=== PATIENT | male | born 1955 | race Caucasian/White ===

== ENCOUNTER 2017-06-30 22:12 | Emergency (ER) | payer MEDICARE ==
[~2017-06-30] VITALS: Ht 175.3 cm; Wt 70.0 kg
[2017-06-30 23:22] LABS: HEMATOCRIT 36.7 % (39.2-51.8); HEMOGLOBIN 12.1 g/dL (13.7-18.0); WHITE BLOOD COUNT 14.3 x10^3/uL (3.4-10)
[2017-06-30 23:34] LABS: BLOOD UREA NITROGEN 4 mg/dL (7-18)
[2017-07-01] MEDS ORDERED: SODIUM CHLORIDE 0.9% 1,000ML IVBOLUS ONE
[2017-07-01 00:44] LABS: PATH.CAST-FLAG NOT PRESENT; SPERM-FLAG NOT PRESENT; SRC-FLAG NOT PRESENT; XTAL-FLAG NOT PRESENT; YLC-FLAG NOT PRESENT
[2017-07-01 04:13] VITALS: BP 94/52
== END 2017-07-01 04:24 | disposition home or self-care (01) ==
LOC: ED 23:36
DX: F10.220 Alcohol dependence with intoxication, uncomplicated (principal)
CPT/HCPCS: 36415; 71010; 80048; 80307; 81001; 82040; 85025; 96360; 99285; J7030; G0479

== ENCOUNTER 2017-07-09 17:24 | Emergency (ER) | payer MEDICARE ==
[~2017-07-09] VITALS: Ht 172.7 cm; Wt 65.0 kg
[2017-07-09 17:38] VITALS: BP 148/76
== END 2017-07-09 18:19 | disposition home or self-care (01) ==
LOC: ED 18:13
DX: Z02.89 Encounter for other administrative examinations (principal); G89.29 Other chronic pain; Z99.3 Dependence on wheelchair; M79.605 Pain in left leg
CPT/HCPCS: 99283

== ENCOUNTER 2017-07-19 02:38 | Emergency (ER) | payer MEDICARE ==
[~2017-07-19] VITALS: Ht 172.7 cm; Wt 68.0 kg
[2017-07-19 03:36] LABS: BASOPHILS # (AUTO) 0.12 x10^3/uL (0-0.1); BASOPHILS % (AUTO) 2 % (0-1); EOSINOPHILS # (AUTO) 0.98 x10^3/uL (0-0.4); EOSINOPHILS % (AUTO) 13 % (1-7); LYMPHOCYTES % (AUTO) 39 % (22-44); MD NO; MEAN CORPUSCULAR HEMOGLOBIN 28.7 pg (27.5-34.5); MEAN CORPUSCULAR HGB CONC 32.2 g/dL (33.2-36.2); MEAN CORPUSCULAR VOLUME 88.9 fL (81-97); MEAN PLATELET VOLUME 7.5 fL (7.4-10.4); MONOCYTES # (AUTO) 0.74 x10^3/uL (0.2-0.8); MONOCYTES % (AUTO) 10 % (2-9); NEUTROPHILS # (AUTO) 2.68 x10^3/uL (1.8-6.8); NEUTROPHILS % (AUTO) 36 % (42-75); PLATELET COUNT 484 x10^3/uL (130-400); RED BLOOD COUNT 4.61 x10^6/uL (4.38-5.82); RED CELL DISTRIBUTION WIDTH 20.5 % (9.4-14.8)
[2017-07-19 03:46] LABS: ALBUMIN 2.9 g/dL (3.4-5.0); ANION GAP 9 mmol/L (5-15); CALCIUM 8.8 mg/dL (8.5-10.1); CHLORIDE 108 mmol/L (98-107); CREATININE 0.53 mg/dL (0.7-1.3)
[2017-07-19 10:17] VITALS: BP 99/67
== END 2017-07-19 11:31 | disposition home or self-care (01) ==
LOC: ED 08:42
DX: F10.129 Alcohol abuse with intoxication, unspecified (principal)
CPT/HCPCS: 36415; 70450; 80048; 80307; 82040; 85025; 99285; G0479

== ENCOUNTER 2017-08-03 14:08 | Emergency (ER) | payer MEDICARE ==
[~2017-08-03] VITALS: Ht 175.3 cm; Wt 54.5 kg
[2017-08-03] MEDS ORDERED: LACTATED RINGERS 1,000 ML IVBOLUS ONE (19:30)
[2017-08-03 19:49] LABS: ALBUMIN 2.6 g/dL (3.4-5.0); ANION GAP 6 mmol/L (5-15); CALCIUM 7.7 mg/dL (8.5-10.1); CHLORIDE 111 mmol/L (98-107); CREATININE 0.47 mg/dL (0.7-1.3); SALICYLATE LEVEL 4.8 mg/dL (2.8-20.0)
[2017-08-03 19:50] LABS: ACETAMINOPHEN < 2 mcg/mL (10-30)
[2017-08-04 01:01] VITALS: BP 104/57
== END 2017-08-04 01:53 ==
LOC: ED 15:08
DX: F10.220 Alcohol dependence with intoxication, uncomplicated (principal)
CPT/HCPCS: 36415; 80048; 80307; 80329; 82040; J7120; G0480

== ENCOUNTER 2017-08-16 14:42 | Emergency (ER) | payer MEDICARE ==
[2017-08-16] MEDS ORDERED: SODIUM CHLORIDE 0.9% 1,000ML IVBOLUS ONE ×2 (17:00)
[2017-08-16] MEDS ORDERED: PLEASE ENTER HEIGHT AND WEIGHT MC SCH (17:00)
[2017-08-16 17:41] LABS: ALBUMIN 2.2 g/dL (3.4-5.0); ANION GAP 8 mmol/L (5-15); CALCIUM 7.1 mg/dL (8.5-10.1); CHLORIDE 119 mmol/L (98-107)
[2017-08-16 17:42] LABS: BASOPHILS # (AUTO) 0.06 x10^3/uL (0-0.1); BASOPHILS % (AUTO) 1 % (0-1); CREATININE 0.52 mg/dL (0.7-1.3); EOSINOPHILS # (AUTO) 0.58 x10^3/uL (0-0.4); EOSINOPHILS % (AUTO) 10 % (1-7); LYMPHOCYTES % (AUTO) 35 % (22-44); MD NO; MEAN CORPUSCULAR HEMOGLOBIN 27.9 pg (27.5-34.5); MEAN CORPUSCULAR HGB CONC 31.9 g/dL (33.2-36.2); MEAN CORPUSCULAR VOLUME 87.3 fL (81-97); MEAN PLATELET VOLUME 7.2 fL (7.4-10.4); MONOCYTES # (AUTO) 0.69 x10^3/uL (0.2-0.8); MONOCYTES % (AUTO) 12 % (2-9); NEUTROPHILS # (AUTO) 2.41 x10^3/uL (1.8-6.8); NEUTROPHILS % (AUTO) 42 % (42-75); PLATELET COUNT 397 x10^3/uL (130-400); RED BLOOD COUNT 3.66 x10^6/uL (4.38-5.82); RED CELL DISTRIBUTION WIDTH 20.2 % (9.4-14.8)
[2017-08-16 21:48] VITALS: BP 102/69
== END 2017-08-16 21:52 | disposition home or self-care (01) ==
LOC: ED 15:18
DX: F10.120 Alcohol abuse with intoxication, uncomplicated (principal)
CPT/HCPCS: 36415; 70450; 72125; 80048; 82040; 85025; 93005; 96360; 96361; 99285; J7030

== ENCOUNTER 2017-08-18 19:49 | Emergency (ER) | payer MEDICARE ==
[~2017-08-18] VITALS: Ht 167.6 cm; Wt 64.0 kg
[2017-08-18] MEDS ORDERED: PLEASE ENTER HEIGHT AND WEIGHT MC SCH (20:30)
[2017-08-18] MEDS ORDERED: LIDOCAINE 1%, 10ML INFIL ONE (20:30)
[2017-08-18] MEDS ORDERED: DIPH,PERTUSS(ACELL),TET VAC/PF 0.5 ML IM-VACC ONE (20:30)
[2017-08-18] MEDS ORDERED: PIPERONYL BUTOXIDE/PYRETHRINS SHAMPOO TP SCH (20:30)
[2017-08-18] MEDS ORDERED: LIDOCAINE 1%, 20ML ONE (22:01)
[2017-08-18] MEDS ORDERED: BACITRACIN ZINC OINT 500U/GM, 0.9 GM ONE (22:46)
[2017-08-19 03:25] VITALS: BP 145/88
== END 2017-08-19 03:27 | disposition home or self-care (01) ==
LOC: ED 20:56
DX: S01.01XA Laceration without foreign body of scalp, initial encounter (principal); S00.31XA Abrasion of nose, initial encounter; Z59.0 Homelessness; W19.XXXA Unspecified fall, initial encounter; Y93.89 Activity, other specified; Y99.8 Other external cause status; Y92.89 Other specified places as the place of occurrence of the external cause
CPT/HCPCS: 12032; 70450; 70486; 72125

== ENCOUNTER 2017-09-03 00:10 | Emergency (ER) | payer MEDICARE ==
[~2017-09-03] VITALS: Ht 167.6 cm; Wt 58.0 kg
[2017-09-03 04:24] VITALS: BP 93/56
== END 2017-09-03 07:22 | disposition home or self-care (01) ==
LOC: ED 00:17
DX: M79.661 Pain in right lower leg (principal); M79.662 Pain in left lower leg; F10.220 Alcohol dependence with intoxication, uncomplicated; F17.200 Nicotine dependence, unspecified, uncomplicated; Z60.9 Problem related to social environment, unspecified; Z91.14 Patient's other noncompliance with medication regimen; Z72.89 Other problems related to lifestyle
CPT/HCPCS: 99283

== ENCOUNTER 2017-09-16 21:11 | Emergency (ER) | payer MEDICARE ==
[~2017-09-16] VITALS: Ht 167.6 cm; Wt 70.0 kg
[2017-09-17 00:59] VITALS: BP 92/56
== END 2017-09-17 02:18 | disposition home or self-care (01) ==
LOC: ED 23:22
DX: F10.129 Alcohol abuse with intoxication, unspecified (principal); G92 Toxic encephalopathy; Y90.9 Presence of alcohol in blood, level not specified
CPT/HCPCS: 99283

== ENCOUNTER 2017-09-22 00:30 | Emergency (ER) | payer MEDICARE ==
[~2017-09-22] VITALS: Ht 172.7 cm; Wt 70.0 kg
[2017-09-22] MEDS ORDERED: SODIUM CHLORIDE 0.9% 1,000ML IVBOLUS ONE ×2 (01:00→02:30)
[2017-09-22 01:23] LABS: MEAN CORPUSCULAR HEMOGLOBIN 27.2 pg (27.5-34.5); MEAN CORPUSCULAR HGB CONC 32.2 g/dL (33.2-36.2); MEAN CORPUSCULAR VOLUME 84.6 fL (81-97); MEAN PLATELET VOLUME 7.1 fL (7.4-10.4); PLATELET COUNT 372 x10^3/uL (130-400); RED BLOOD COUNT 4.07 x10^6/uL (4.38-5.82); RED CELL DISTRIBUTION WIDTH 19.3 % (9.4-14.8)
[2017-09-22 01:27] LABS: CULTURE INDICATED? NO; MICROSCOPIC AUTO
[2017-09-22 01:34] LABS: ALANINE AMINOTRANSFERASE 13 U/L (12-78); ALBUMIN 2.3 g/dL (3.4-5.0); ANION GAP 10 mmol/L (5-15); CALCIUM 8.3 mg/dL (8.5-10.1); CHLORIDE 104 mmol/L (98-107); CREATININE 1.07 mg/dL (0.7-1.3)
[2017-09-22 01:35] LABS: AMPHETAMINE SCREEN, URINE Negative (Negative); BARBITURATE SCREEN, URINE Negative (Negative); BENZODIAZEPINE SCREEN, URINE Negative (Negative); CANNABINOID SCREEN, URINE Negative (Negative); COCAINE SCREEN, URINE Negative (Negative); METHADONE SCREEN, URINE Negative (Negative); OPIATE SCREEN, URINE Negative (Negative)
[2017-09-22 01:37] LABS: MD YES
[2017-09-22 01:38] LABS: ALKALINE PHOSPHATASE 82 U/L (45-117); BILIRUBIN,TOTAL 0.2 mg/dL (0.2-1.0); TOTAL PROTEIN 7.1 g/dL (6.4-8.2)
[2017-09-22 01:40] LABS: BAND#(MANUAL) 0.49 x10^3/uL; BANDS%(MANUAL) 5 % (0-7); BASOS% (MANUAL) 1 % (0-1); EOS#(MANUAL) 0.39 x10^3/uL (0.0-0.4); EOS% (MANUAL) 4 % (1-7); LYMPH#(MANUAL) 1.75 x10^3/uL (1-3.4); LYMPHS% (MANUAL) 18 % (22-44); METAMYELOCYTES% (MANUAL) 1 % (0-1); MONOS#(MANUAL) 0.29 x10^3/uL (0.3-2.7); MONOS% (MANUAL) 3 % (2-9); MYELOCYTES% (MANUAL) 1 % (0-0); SEGS% (MANUAL) 67 % (42-75)
[2017-09-22 01:41] LABS: <PLATELET ESTIMATE> ADEQUATE; <PLT MORPHOLOGY> NORMAL PLT MORPH; ANISOCYTOSIS 1+
[2017-09-22 01:47] LABS: TROPONIN I < 0.015 ng/mL (0.000-0.045)
[2017-09-22 14:31] VITALS: BP 108/53
== END 2017-09-22 14:33 | disposition home or self-care (01) ==
LOC: ED 01:36
DX: F10.229 Alcohol dependence with intoxication, unspecified (principal); I95.9 Hypotension, unspecified
CPT/HCPCS: 36415; 70450; 71045; 80053; 80307; 81001; 84484; 85025; 93005; 96360; 96361; 99285; J7030

== ENCOUNTER 2017-11-13 19:31 | Emergency (ER) | payer MEDICARE ==
[~2017-11-13] VITALS: Ht 177.8 cm; Wt 80.0 kg
[2017-11-14 03:53] VITALS: BP 99/57
== END 2017-11-14 03:56 | disposition home or self-care (01) ==
LOC: ED 20:19
DX: F10.220 Alcohol dependence with intoxication, uncomplicated (principal); Y90.9 Presence of alcohol in blood, level not specified
CPT/HCPCS: 71045; 99283

== ENCOUNTER 2017-12-24 15:27 | Inpatient (IN) | payer MEDICARE, MEDICAID ==
[~2017-12-24] VITALS: Ht 177.8 cm; Wt 61.6 kg
[2017-12-24 16:26] LABS: ALANINE AMINOTRANSFERASE 28 U/L (12-78); ALBUMIN 3.1 g/dL (3.4-5.0); ANION GAP 12 mmol/L (5-15); CALCIUM 8.7 mg/dL (8.5-10.1); CHLORIDE 110 mmol/L (98-107); CREATININE 0.57 mg/dL (0.7-1.3)
[2017-12-24 16:30] LABS: ALKALINE PHOSPHATASE 80 U/L (45-117); BILIRUBIN,TOTAL 0.2 mg/dL (0.2-1.0); TOTAL PROTEIN 7.9 g/dL (6.4-8.2)
[2017-12-24] MEDS ORDERED: SODIUM CHLORIDE FLUSH 10ML SYR IVF ONE (16:30)
[2017-12-24] MEDS ORDERED: CEFTRIAXONE PMX 1GM/50ML 50 ML IVPB ONE (16:30)
[2017-12-24] MEDS ORDERED: AZITHROMYCIN 500 MG in SODIUM CHLORIDE 0.9% 250 ML IV ONE (16:30)
[2017-12-24] MEDS ORDERED: SODIUM CHLORIDE 0.9% 1,000ML IVBOLUS ONE (16:30)
[2017-12-24 16:59] LABS: BASOPHILS # (AUTO) 0.04 x10^3/uL (0-0.1); BASOPHILS % (AUTO) 1 % (0-1); EOSINOPHILS # (AUTO) 0.18 x10^3/uL (0-0.4); EOSINOPHILS % (AUTO) 2 % (1-7); LYMPHOCYTES # (AUTO) 2.95 x10^3/uL (1-3.4); LYMPHOCYTES % (AUTO) 38 % (22-44); MD NO; MEAN CORPUSCULAR HEMOGLOBIN 27.2 pg (27.5-34.5); MEAN CORPUSCULAR HGB CONC 32.7 g/dL (33.2-36.2); MEAN CORPUSCULAR VOLUME 83.2 fL (81-97); MEAN PLATELET VOLUME 7.1 fL (7.4-10.4); MONOCYTES # (AUTO) 0.78 x10^3/uL (0.2-0.8); MONOCYTES % (AUTO) 10 % (2-9); NEUTROPHILS # (AUTO) 3.86 x10^3/uL (1.8-6.8); NEUTROPHILS % (AUTO) 49 % (42-75); PLATELET COUNT 410 x10^3/uL (130-400); RED BLOOD COUNT 5.07 x10^6/uL (4.38-5.82); RED CELL DISTRIBUTION WIDTH 20.5 % (9.4-14.8)
[2017-12-24] MEDS: CEFTRIAXONE PMX 1GM/50ML 50 ML IV SCH (17:00)
[2017-12-24] MEDS ORDERED: DOCUSATE 100 MG CAPSULE PO PRN (17:00)
[2017-12-24] MEDS ORDERED: LORazepam 2 MG/ML, 1ML IV PRN ×4 (17:00)
[2017-12-24] MEDS ORDERED: LORazepam 1MG TABLET PO PRN (17:00)
[2017-12-24] MEDS ORDERED: LORazepam 0.5MG TABLET PO PRN (17:00)
[2017-12-24] MEDS ORDERED: ONDANSETRON ODT 4 MG PO PRN (17:00)
[2017-12-24] MEDS ORDERED: CEFTRIAXONE PMX 1GM/50ML 50 ML ONE (17:02)
[2017-12-24] MEDS ORDERED: metroNIDAZOLE 500 MG TABLET ONE (17:02)
[2017-12-24] MEDS: MVI ADULT IV SCH (18:34)
[2017-12-24] MEDS: MAGNESIUM SULFATE PMX IV SCH (18:34)
[2017-12-24] MEDS: [UNRECOGNIZED DRUG - OTHER] IV SCH (18:34)
[2017-12-24] MEDS: NICOTINE 14MG/24 HR PATCH.TD24 TD SCH (18:34)
[2017-12-24] MEDS: POTASSIUM CHLORIDE IV SCH (18:34)
[2017-12-24 19:50] VITALS: BP 109/66
[2017-12-24] MEDS: D5%-0.45% NACL 1,000 ML IV SCH (21:19)
[2017-12-24] MEDS: AZITHROMYCIN 500 MG in SODIUM CHLORIDE 0.9% 250 ML IV SCH (21:22)
[2017-12-24] MEDS: ACETAMINOPHEN 325 MG TABLET PO PRN (21:26)
[2017-12-24] MEDS: ENOXAPARIN 40 MG/0.4 ML SQ SCH (21:26)
[2017-12-24] MEDS: metroNIDAZOLE 500 MG TABLET PO SCH (21:26)
[2017-12-24] MEDS: GUAIFENESIN 200 MG TABLET PO SCH (21:26)
[2017-12-25] MEDS ORDERED: albuterol (00:46)
[2017-12-25 01:35] VITALS: BP 102/56
[2017-12-25] MEDS: ACETAMINOPHEN 325 MG TABLET PO PRN ×3 (02:48→18:15)
[2017-12-25] MEDS: GUAIFENESIN 200 MG TABLET PO SCH ×4 (05:19→20:38)
[2017-12-25 05:34] LABS: MEAN CORPUSCULAR HEMOGLOBIN 26.7 pg (27.5-34.5); MEAN CORPUSCULAR HGB CONC 32.2 g/dL (33.2-36.2); MEAN CORPUSCULAR VOLUME 82.9 fL (81-97); MEAN PLATELET VOLUME 7.4 fL (7.4-10.4); PLATELET COUNT 379 x10^3/uL (130-400); RED BLOOD COUNT 4.08 x10^6/uL (4.38-5.82); RED CELL DISTRIBUTION WIDTH 20.3 % (9.4-14.8)
[2017-12-25 05:45] LABS: ALANINE AMINOTRANSFERASE 20 U/L (12-78); ALBUMIN 2.6 g/dL (3.4-5.0); ANION GAP 9 mmol/L (5-15); CHLORIDE 105 mmol/L (98-107)
[2017-12-25 05:48] LABS: ALKALINE PHOSPHATASE 63 U/L (45-117); BILIRUBIN,TOTAL 0.5 mg/dL (0.2-1.0); CREATININE 0.52 mg/dL (0.7-1.3); TOTAL PROTEIN 6.4 g/dL (6.4-8.2)
[2017-12-25 05:59] LABS: BASOPHILS # (AUTO) 0.06 x10^3/uL (0-0.1); BASOPHILS % (AUTO) 1 % (0-1); EOSINOPHILS # (AUTO) 0.18 x10^3/uL (0-0.4); EOSINOPHILS % (AUTO) 2 % (1-7); LYMPHOCYTES # (AUTO) 1.73 x10^3/uL (1-3.4); LYMPHOCYTES % (AUTO) 20 % (22-44); MD SCAN; MONOCYTES # (AUTO) 1.66 x10^3/uL (0.2-0.8); MONOCYTES % (AUTO) 19 % (2-9); NEUTROPHILS # (AUTO) 5.15 x10^3/uL (1.8-6.8); NEUTROPHILS % (AUTO) 59 % (42-75)
[2017-12-25 08:00] VITALS: BP 100/49
[2017-12-25] MEDS: LORazepam 1MG TABLET PO PRN ×2 (09:30→18:15)
[2017-12-25] MEDS: D5%-0.45% NACL 1,000 ML IV SCH ×3 (09:30→20:38)
[2017-12-25] MEDS: metroNIDAZOLE 500 MG TABLET PO SCH ×3 (09:30→20:38)
[2017-12-25 14:35] VITALS: BP 107/56
[2017-12-25] MEDS: NICOTINE 14MG/24 HR PATCH.TD24 TD SCH (18:14)
[2017-12-25] MEDS: CEFTRIAXONE PMX 1GM/50ML 50 ML IV SCH (18:15)
[2017-12-25] MEDS: AZITHROMYCIN 500 MG in SODIUM CHLORIDE 0.9% 250 ML IV SCH (20:38)
[2017-12-25] MEDS: ENOXAPARIN 40 MG/0.4 ML SQ SCH (20:38)
[2017-12-25 21:28] VITALS: BP 107/69
[2017-12-25] MEDS: POTASSIUM CHLORIDE IV SCH (22:48)
[2017-12-25] MEDS: [UNRECOGNIZED DRUG - OTHER] IV SCH (22:48)
[2017-12-25] MEDS: MVI ADULT IV SCH (22:48)
[2017-12-25] MEDS: MAGNESIUM SULFATE PMX IV SCH (22:48)
[2017-12-26 03:37] VITALS: BP 115/69
[2017-12-26 04:27] LABS: CLOSTRIDIUM DIFFICILE ANTIGEN NEGATIVE; CLOSTRIDIUM DIFFICILE TOXIN NEGATIVE (Negative)
[2017-12-26] MEDS: GUAIFENESIN 200 MG TABLET PO SCH ×2 (06:13→13:59)
[2017-12-26 06:49] VITALS: BP 102/65
[2017-12-26] MEDS: metroNIDAZOLE 500 MG TABLET PO SCH (09:00)
[2017-12-26] MEDS ORDERED: AMOXICILLIN/CLAV 875-125MG TABLET PO SCH (09:30)
[2017-12-26] MEDS ORDERED: OMNIPAQUE 350 MG/ML, 100ML BOTTLE ONE (13:14)
[2017-12-26] MEDS ORDERED: KETOROLAC 30 MG/1 ML IVPush ONE (13:30)
[2017-12-26 13:52] VITALS: BP 128/71
[2017-12-26] MEDS: D5%-0.45% NACL 1,000 ML IV SCH (13:59)
[2017-12-26] MEDS ORDERED: AMOX1TAB12 PO (15:53)
== END 2017-12-26 17:44 | disposition home or self-care (01) | DRG 193 ==
LOC: ED 16:28 → EDIP 16:29 → ED 17:14 → 3NE 17:45
PROVIDERS: ADMIT Internal Medicine; ATTEND Internal Medicine
DX: J18.1 Lobar pneumonia, unspecified organism (principal); J96.01 Acute respiratory failure with hypoxia; E87.0 Hyperosmolality and hypernatremia; E44.1 Mild protein-calorie malnutrition; J44.0 Chronic obstructive pulmonary disease with (acute) lower respiratory infection; Z68.1 Body mass index [BMI] 19.9 or less, adult; F10.129 Alcohol abuse with intoxication, unspecified; D64.9 Anemia, unspecified; F17.200 Nicotine dependence, unspecified, uncomplicated; Z71.6 Tobacco abuse counseling; Z59.0 Homelessness; N28.89 Other specified disorders of kidney and ureter
CPT/HCPCS: 36415; 71045; 74177; 80053; 80307; 83605; 83735; 84145; 85025; 87040; 87324; 99291; J0456; J0696; J1650; J1885; J3411; J3480; Q9967; 92523-GN; J3475; J7030; J7050

== ENCOUNTER 2018-09-24 16:43 | Emergency (ER) | payer MEDICARE, MEDICAID ==
[~2018-09-24] VITALS: Ht 175.3 cm; Wt 72.0 kg
[~2018-09-24 16:43] MED LIST: ACET325T14 PO; AMOX1TAB12 PO; GUAI600T31 PO; POLY17PO5 PO; TRAM50TA2 PO; albuterol
[2018-09-24 17:03] VITALS: BP 111/38
== END 2018-09-24 20:11 | disposition home or self-care (01) ==
LOC: ED 20:05
DX: S00.83XA Contusion of other part of head, initial encounter (principal); Y04.8XXA Assault by other bodily force, initial encounter; Y93.89 Activity, other specified; Y92.89 Other specified places as the place of occurrence of the external cause; Y99.8 Other external cause status
CPT/HCPCS: 70450; 70486; 99284

== ENCOUNTER 2018-09-30 15:28 | Emergency (ER) | payer MEDICARE, MEDICAID ==
[~2018-09-30] VITALS: Ht 172.7 cm; Wt 60.0 kg
[2018-09-30 15:39] VITALS: BP 145/71
--- NOTE | 2018-09-30 16:48 | NUR ---
PT DECONNED IN SHOWER ROOM PRIOR TO BEING BROUGHT TO ED 27. ERP IN TO SEE PT, PT TO BE DISCHARGED.
--- NOTE | 2018-09-30 17:14 | NUR ---
ATTEMPT TO DISCHARGE PT. PT WITH SLURRED SPEECH, INTOXICATED, STATES HE CAN'T AMBULATE. WILL REASSESS AND DISCHARGE WHEN APPROPRIATE.
--- NOTE | 2018-09-30 18:45 | NUR ---
PT GIVEN CLEAN CLOTHES FROM DONATION CLOSET. PT ASSISTED TO HIS WHEELCHAIR, PROVIDED BUS PASS. PT STATES HE HAS MONEY AND WILL CALL [facility] FOR RIDE TO LONG TERM.
--- NOTE | 2018-09-30 18:57 | NUR ---
CARE FOR DC ONLY PROVIDED. PT IN W/C, NO ACUTE DISTRESS NOTED. NO IV TO DC. REVIEWED DC INSTRUCTIONS WITH PT, UNDERSTANDING VERBALIZED.
== END 2018-09-30 18:59 | disposition home or self-care (01) ==
LOC: ED 18:53
DX: M79.662 Pain in left lower leg (principal); M79.661 Pain in right lower leg; G89.29 Other chronic pain; F10.120 Alcohol abuse with intoxication, uncomplicated; Z72.9 Problem related to lifestyle, unspecified
CPT/HCPCS: 99282

== ENCOUNTER 2018-09-30 20:08 | Emergency (ER) | payer MEDICARE, MEDICAID ==
[~2018-09-30] VITALS: Ht 172.7 cm; Wt 65.0 kg
--- NOTE | 2018-09-30 21:59 | NUR ---
TO ROOM FROM LOBBY. NAD.
--- NOTE | 2018-09-30 22:18 | NUR ---
PT not ready for Xray, unable/unwilling to move to Xray table. pt still fully dressed in wheelchair in room. once patient is undressed and on gurney, xray can be done.
--- NOTE | 2018-09-30 22:47 | NUR ---
Pt moved to CATHERINE alvarez at bedside.
[2018-10-01 00:16] VITALS: BP 118/64
== END 2018-10-01 00:18 | disposition home or self-care (01) ==
LOC: ED 22:19
DX: M25.571 Pain in right ankle and joints of right foot (principal); Z72.9 Problem related to lifestyle, unspecified; Z99.3 Dependence on wheelchair; W06.XXXA Fall from bed, initial encounter; Y93.89 Activity, other specified; Y92.89 Other specified places as the place of occurrence of the external cause; Y99.8 Other external cause status
CPT/HCPCS: 99283

== ENCOUNTER 2019-08-13 18:19 | Emergency (ER) | payer MEDICAID, MEDICARE ==
[~2019-08-13] VITALS: Ht 172.7 cm; Wt 68.0 kg
--- NOTE | 2019-08-13 18:28 | NUR ---
ASSUMED CARE OF PATIENT. STEPHANIE NIEVES FORM THE LONGTERM FOR ETOH. PT ALSO C/O BILATERAL FEET PAIN. EMS BROUGHT PT'S WHEELCHAIR. VS STABLE. NO ACUTE DISTRESS NOTED. PT SEEN BY DR COLE. WILL CONTINUE TO MONITOR.
--- NOTE | 2019-08-13 18:55 | NUR ---
PT USING URINAL IN ROOM. VS STABLE. WILL CONTINUE TO MONITOR.
--- NOTE | 2019-08-13 19:10 | NUR ---
XRAY IN ROOM
[2019-08-13 19:32] LABS: BASOPHILS # (AUTO) 0.19 x10^3/uL (0-0.1); BASOPHILS % (AUTO) 2 % (0-1); EOSINOPHILS # (AUTO) 0.48 x10^3/uL (0-0.4); EOSINOPHILS % (AUTO) 5 % (1-7); LYMPHOCYTES # (AUTO) 1.76 x10^3/uL (1-3.4); LYMPHOCYTES % (AUTO) 17 % (22-44); MD NO; MEAN CORPUSCULAR HEMOGLOBIN 29.2 pg (27.5-34.5); MEAN CORPUSCULAR HGB CONC 32.6 g/dL (33.2-36.2); MEAN CORPUSCULAR VOLUME 89.7 fL (81-97); MEAN PLATELET VOLUME 7.1 fL (7.4-10.4); MONOCYTES % (AUTO) 9 % (2-9); NEUTROPHILS # (AUTO) 6.95 x10^3/uL (1.8-6.8); NEUTROPHILS % (AUTO) 68 % (42-75); PLATELET COUNT 500 x10^3/uL (130-400); RED BLOOD COUNT 4.07 x10^6/uL (4.38-5.82); RED CELL DISTRIBUTION WIDTH 18.6 % (9.4-14.8)
[2019-08-13 19:42] LABS: ALANINE AMINOTRANSFERASE 10 U/L (12-78); ALBUMIN 2.8 g/dL (3.4-5.0); ANION GAP 11 mmol/L (5-15); CALCIUM 8.6 mg/dL (8.5-10.1); CHLORIDE 103 mmol/L (98-107); CREATININE 0.55 mg/dL (0.7-1.3)
[2019-08-13 19:45] LABS: ALKALINE PHOSPHATASE 71 U/L (45-117); BILIRUBIN,TOTAL 0.5 mg/dL (0.2-1.0); TOTAL PROTEIN 7.3 g/dL (6.4-8.2)
[2019-08-13] MEDS ORDERED: SODIUM CHLORIDE FLUSH 10ML SYR IVF ONE (20:00)
[2019-08-13] MEDS ORDERED: SODIUM CHLORIDE 0.9% 1,000ML IVBOLUS ONE (20:00)
--- NOTE | 2019-08-13 20:00 | NUR ---
DR COLE AWARE OF VS
--- NOTE | 2019-08-13 21:40 | NUR ---
THIS TECH PROVIDED PT WITH A BRAND NEW PAIR OF SOCKS AND A PAIR OF PANTS FROM THE CLOTHING [facility]ATION CLOSET. THIS TECH ALSO PROVIDED PT WITH A PAIR OF HOSIPITAL SOCKS.
[2019-08-13 22:00] VITALS: BP 108/61
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
== END 2019-08-13 22:14 | disposition home or self-care (01) ==
LOC: ED 20:44
DX: E86.0 Dehydration (principal); F10.120 Alcohol abuse with intoxication, uncomplicated; R55 Syncope and collapse; M79.604 Pain in right leg; M79.605 Pain in left leg; M79.672 Pain in left foot; M79.671 Pain in right foot; Y90.9 Presence of alcohol in blood, level not specified; Z86.73 Personal history of transient ischemic attack (TIA), and cerebral infarction without residual deficits
CPT/HCPCS: 36415; 71045; 80053; 80307; 85025; 99284; J7030

== ENCOUNTER 2019-09-16 17:24 | Emergency (ER) | payer MEDICARE ==
[~2019-09-16] VITALS: Ht 172.7 cm; Wt 63.8 kg
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
--- NOTE | 2019-09-16 18:24 | NUR ---
Unable to complete Med Rec at this time, pt does not know medicatons or dosages
[2019-09-16 18:38] LABS: BASOPHILS # (AUTO) 0.08 x10^3/uL (0-0.1); BASOPHILS % (AUTO) 1 % (0-1); EOSINOPHILS # (AUTO) 0.94 x10^3/uL (0-0.4); EOSINOPHILS % (AUTO) 12 % (1-7); LYMPHOCYTES % (AUTO) 33 % (22-44); MD NO; MEAN CORPUSCULAR HEMOGLOBIN 29.1 pg (27.5-34.5); MEAN CORPUSCULAR HGB CONC 32.6 g/dL (33.2-36.2); MEAN CORPUSCULAR VOLUME 89.3 fL (81-97); MONOCYTES # (AUTO) 0.62 x10^3/uL (0.2-0.8); MONOCYTES % (AUTO) 8 % (2-9); NEUTROPHILS % (AUTO) 47 % (42-75); PLATELET COUNT 388 x10^3/uL (130-400); RED CELL DISTRIBUTION WIDTH 19.4 % (9.4-14.8)
[2019-09-16 18:48] LABS: ALBUMIN 2.9 g/dL (3.4-5.0); ANION GAP 7 mmol/L (5-15); CALCIUM 8.4 mg/dL (8.5-10.1); CHLORIDE 112 mmol/L (98-107)
[2019-09-16 18:52] LABS: ALANINE AMINOTRANSFERASE 15 U/L (12-78); ALKALINE PHOSPHATASE 63 U/L (45-117); BILIRUBIN,TOTAL 0.2 mg/dL (0.2-1.0); CREATININE 0.43 mg/dL (0.7-1.3); TOTAL PROTEIN 7.2 g/dL (6.4-8.2)
--- NOTE | 2019-09-16 19:03 | NUR ---
REPORT FROM AMBROSE CONDE, ASSUMING CARE OF PT AT THIS TIME
--- NOTE | 2019-09-16 19:03 | NUR ---
Report to ELTON Miller
--- NOTE | 2019-09-16 19:32 | NUR ---
ERP UPDATED ON PT NOT PROVIDING URINE AT THIS TIME.
[2019-09-16 20:05] VITALS: BP 127/77
--- NOTE | 2019-09-16 20:57 | NUR ---
PT RESTING ON SYLVESTER JEONG
--- NOTE | 2019-09-16 21:39 | NUR ---
PT AROUSABLE TO VERBAL STIMULI, PT CONTINUES TO REST ON JEAN-PAUL PHAN.
--- NOTE | 2019-09-16 22:38 | NUR ---
PT REMOVING MONITORING, VSS, NADN.
== END 2019-09-16 23:26 | disposition home or self-care (01) ==
LOC: ED 22:19
DX: F10.220 Alcohol dependence with intoxication, uncomplicated (principal); Z72.9 Problem related to lifestyle, unspecified; Z85.118 Personal history of other malignant neoplasm of bronchus and lung; F17.200 Nicotine dependence, unspecified, uncomplicated; Y90.9 Presence of alcohol in blood, level not specified
CPT/HCPCS: 36415; 71045; 80053; 80307; 85025; 99284

== ENCOUNTER 2019-09-29 13:59 | Emergency (ER) | payer MEDICARE ==
[~2019-09-29] VITALS: Ht 175.3 cm; Wt 60.0 kg
[2019-09-29] MEDS ORDERED: ALBUTEROL/IPRATROPIUM 2.5MG/0.5MG, 3 ML ONE (14:57)
[2019-09-29] MEDS ORDERED: SODIUM CHLORIDE FLUSH 10ML SYR IVF ONE (15:00)
[2019-09-29] MEDS ORDERED: PLEASE ENTER HEIGHT AND WEIGHT MC SCH (15:00)
[2019-09-29] MEDS ORDERED: ALBUTEROL/IPRATROPIUM 2.5MG/0.5MG, 3 ML NPPB ONE (15:00)
[2019-09-29 15:07] LABS: BASOPHILS % (AUTO) 2 % (0-1); EOSINOPHILS # (AUTO) 0.29 x10^3/uL (0-0.4); EOSINOPHILS % (AUTO) 4 % (1-7); LYMPHOCYTES # (AUTO) 2.37 x10^3/uL (1-3.4); LYMPHOCYTES % (AUTO) 34 % (22-44); MD NO; MEAN CORPUSCULAR HGB CONC 33.2 g/dL (33.2-36.2); MEAN CORPUSCULAR VOLUME 90.4 fL (81-97); MEAN PLATELET VOLUME 7.1 fL (7.4-10.4); MONOCYTES # (AUTO) 0.97 x10^3/uL (0.2-0.8); MONOCYTES % (AUTO) 14 % (2-9); NEUTROPHILS # (AUTO) 3.29 x10^3/uL (1.8-6.8); NEUTROPHILS % (AUTO) 47 % (42-75); PLATELET COUNT 349 x10^3/uL (130-400); RED BLOOD COUNT 4.17 x10^6/uL (4.38-5.82); RED CELL DISTRIBUTION WIDTH 20.7 % (9.4-14.8)
[2019-09-29 15:13] LABS: ALBUMIN 3.1 g/dL (3.4-5.0); ANION GAP 7 mmol/L (5-15); CALCIUM 8.6 mg/dL (8.5-10.1); CHLORIDE 104 mmol/L (98-107); CREATININE 0.48 mg/dL (0.7-1.3)
[2019-09-29 16:13] VITALS: BP 97/54
--- NOTE | 2019-09-29 16:45 | NUR ---
PT PROVIDED WITH NEW OUTFIT FROM DONATION ROOM, TAXI VOUCHER, AND DISCHARGE PAPERWORK. VERBALIZES UNDERSTNADING OF ALL INSTRUCTIONS, DENIES ANY FURTHER NEEDS OR CONCERNS AT THIS TIME.
== END 2019-09-29 16:47 | disposition home or self-care (01) ==
LOC: ED 14:31
DX: J43.9 Emphysema, unspecified (principal); F17.200 Nicotine dependence, unspecified, uncomplicated
CPT/HCPCS: 36415; 71045; 80048; 82040; 83605; 85025; 87040; 99284

== ENCOUNTER 2020-01-08 18:04 | Emergency (ER) | payer MEDICARE ==
[~2020-01-08] VITALS: Ht 177.8 cm; Wt 75.0 kg
[2020-01-08 18:15] VITALS: BP 93/56
--- NOTE | 2020-01-08 18:24 | NUR ---
BIB [facility], PT FOUND BY [facility] [place] INTOXICATED, SOILED IN FECES AND URINE. PT ORIENTED TO SELF ONLY AT THIS TIME, SLURRED SPEECH, ABLE TO MOVE ALL EXTREMITIES. PT WITH ETOH ODOR. UNKNOWN HOW MUCH PT CONSUMED. PER EMS [facility] 93. BP LOW ON ARRIVAL 93/56 ALTHOUGH STABLE, WAS 90/54 FOR EMS. PT CHANGED OUT OF CLOTHES, SOILED CLOTHES PLACED IN PT BELONGING BAG. PROVIDED CLEAN UP ABLE WITH SOAP AND WATER.
[2020-01-08 19:12] LABS: BASOPHILS # (AUTO) 0.03 x10^3/uL (0-0.1); BASOPHILS % (AUTO) 0 % (0-1); EOSINOPHILS # (AUTO) 0.56 x10^3/uL (0-0.4); EOSINOPHILS % (AUTO) 8 % (1-7); LYMPHOCYTES # (AUTO) 2.68 x10^3/uL (1-3.4); LYMPHOCYTES % (AUTO) 38 % (22-44); MD NO; MEAN CORPUSCULAR HEMOGLOBIN 31.5 pg (27.5-34.5); MEAN CORPUSCULAR VOLUME 95.2 fL (81-97); MEAN PLATELET VOLUME 6.6 fL (7.4-10.4); MONOCYTES # (AUTO) 0.73 x10^3/uL (0.2-0.8); MONOCYTES % (AUTO) 10 % (2-9); NEUTROPHILS % (AUTO) 44 % (42-75); PLATELET COUNT 505 x10^3/uL (130-400); RED BLOOD COUNT 4.33 x10^6/uL (4.38-5.82); RED CELL DISTRIBUTION WIDTH 18.8 % (9.4-14.8)
[2020-01-08 19:24] LABS: ALANINE AMINOTRANSFERASE 21 U/L (12-78); ALBUMIN 2.7 g/dL (3.4-5.0); ANION GAP 8 mmol/L (5-15); CALCIUM 8.4 mg/dL (8.5-10.1); CHLORIDE 105 mmol/L (98-107); CREATININE 0.66 mg/dL (0.7-1.3)
[2020-01-08 19:26] LABS: ALKALINE PHOSPHATASE 65 U/L (45-117); BILIRUBIN,TOTAL 0.5 mg/dL (0.2-1.0); TOTAL PROTEIN 7.3 g/dL (6.4-8.2)
[2020-01-08 20:17] LABS: AMPHETAMINE SCREEN, URINE Negative (Negative); BARBITURATE SCREEN, URINE Negative (Negative); BENZODIAZEPINE SCREEN, URINE Negative (Negative); CANNABINOID SCREEN, URINE Positive (Negative); COCAINE SCREEN, URINE Negative (Negative); METHADONE SCREEN, URINE Negative (Negative); OPIATE SCREEN, URINE Negative (Negative)
== END 2020-01-08 21:58 | disposition home or self-care (01) ==
LOC: MERGE 18:04 → EDBD 18:04 → ED 21:17
DX: F10.220 Alcohol dependence with intoxication, uncomplicated (principal); Z72.9 Problem related to lifestyle, unspecified; R94.31 Abnormal electrocardiogram [ECG] [EKG]; Y90.9 Presence of alcohol in blood, level not specified
CPT/HCPCS: 36415; 80053; 80307; 85025; 93005; 99284

== ENCOUNTER 2020-06-27 23:27 | Emergency (ER) | payer MEDICARE ==
[~2020-06-27] VITALS: Ht 175.3 cm; Wt 60.0 kg
--- NOTE | 2020-06-28 00:15 | NUR ---
[employer]: PT. TO ROOM FROM WALL AT THIS TIME. PT. POWER W/C LOCATED AT [address] [place] [address].
[2020-06-28] MEDS ORDERED: ALBUTEROL/IPRATROPIUM 2.5MG/0.5MG, 3 ML ONE (00:59)
[2020-06-28] MEDS ORDERED: ALBUTEROL/IPRATROPIUM 2.5MG/0.5MG, 3 ML NPPB ONE (01:00)
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
[2020-06-28] MEDS ORDERED: AMOXICILLIN 500 MG CAPSULE ONE (01:19)
[2020-06-28] MEDS ORDERED: AMOXICILLIN 500 MG CAPSULE PO ONE (01:30)
--- NOTE | 2020-06-28 04:16 | NUR ---
FLEET MANAGER: MULTIPLE ATTEMPTS TO CONTACT [facility]([address] NO ANSWER. PER EMS THIS IS WHERE PT. RESIDES AND W/C IS AT THIS LOCATION. UNABLE TO CONFIRM IF PT. WILL HAVE ACCESS TO W/C AT THIS TIME.
--- NOTE | 2020-06-28 04:21 | NUR ---
THIS PT HAS BEEN AROUSABLE TO VERBAL STIMULI THROUGHOUT TIME IN ER. PT IS VERBALLY AGGRESSIVE WITH THIS RN, SLURRED SPEECH MAKES HIM DIFFICULT TO UNDERSTAND AND WHEN THIS RN ASKS HIM TO REPEAT HIMSELF HE BECOMES AGITATED AND YELLS. THIS RN INQUIRED ABOUT SAFE D/C PLAN HOME WHERE WHEELCHAIR IS. PT STATES HE "DOESN'T KNOW" IF HE COULD STAND AND WALK TO WHEELCHAIR AT HIS PLACE OF RESIDENCE, STATES "YEAH I CAN MOVE MY LEGS." PROCEEDED TO SHOW THIS RN THAT HE IS ABLE TO MOVE HIS LEGS. PER EMS IN REPORT. PT WAS A 2 PERSON ASSIST TRANSPORT. SEE DIFFUSION FURNACE OPERATOR'S NOTE ABOUT ATTEMPTING TO SET UP SAFE D/C.
--- NOTE | 2020-06-28 04:52 | NUR ---
PT SLEEPING, VISIBLE CHEST RISE AND FALL.
--- NOTE | 2020-06-28 04:52 | NUR ---
[facility] FOR FAXED FOR TRANSPORT BACK TO W/. ABLE TO CONFIRM THAT PT. WILL HAVE ACCESS TO W/ ON ARRIVAL.
--- NOTE | 2020-06-28 05:00 | NUR ---
Lesvia porter in ED - 06/28/20 at 0505 by STEVIE LAZARO THE SON CALLED BACK TO CONFIRM [facility] HE IS HOME AND WILL BE ABLE TO LET HER IN. YVETTE SOW VOUCHER PROVIDED
--- NOTE | 2020-06-28 05:05 | NUR ---
CALLED [facility] TO SET UP TRANSPORT. PER [facility] DISPATCH "PT. DOES NOT MEET MEDICAL NECESSITY TO BE TRANSPORTED VIA AMBULANCE".
--- NOTE | 2020-06-28 05:06 | NUR ---
AT THIS TIME WE HAVE NO WAY TO SAFELY D/C THIS PT.
--- NOTE | 2020-06-28 05:12 | NUR ---
[phone] PHONE NUMBER TO [address] [place] [address] THAT WORKS
--- NOTE | 2020-06-28 06:08 | NUR ---
PT REMAINS SLEEPING.
--- NOTE | 2020-06-28 06:55 | NUR ---
REPORT RECEIVED FROM ELTON MONTIEL. ASSUMING PRIMARY CARE OF PT.
--- NOTE | 2020-06-28 07:23 | NUR ---
PT ASLEEP ON GURNEY. RR EVEN AND UNLABORED. SIDE RAILS IN USE. BED IN LOWEST POSITION. TRYING TO OBTAIN WC FOR SAFE DC. RN TO CONTINUE TO MONITOR.
[2020-06-28 07:24] VITALS: BP 116/70
--- NOTE | 2020-06-28 07:47 | NUR ---
RN RECEIVED CALL FROM STEPHENIE RADFORD AT [facility]S HALFW[facility]. PER REPORT FROM STEPHENIE PT IS NOT WELCOMED BACK AT HALFWAY DUE TO PT REFUSING ASSISTANCE. STEPHENIE STATED THAT PT NEEDS A HIGHER LEVEL OF CARE. STEPHENIE ALSO STATED PT HAS A CURRENT OPEN CASE WITH APS AND HAD AN APPOINTMENT TODAY TO TRY AND FIND PLACEMENT. STEPHENIE STATED THAT SW WITH APS MAYBE ABLE TO MEET PT AT HOSPITAL TO TRY AND GET PLACEMENT FOR PT. RN HAD ELTON RENO THROUGHPUT TALK TO STEPHENIE. THROUGHPUT STATED THAT [facility] WILL BE ARRIVING AROUND 10AM THIS MORNING AND WILL PASS ON STEPHENIE'S NUMBER ([phone]) TO TRY A GET A SAFE PLAN FOR DC. RN ASKED IF PT'S WC WAS AT HALFWAY. STEPHENIE STATED WC IS AT HALFWAY AND IS CHARGING. RN STATED THAT A TAXI WILL BE SENT TO HALFWAY TO SPECIAL NEEDS BABYSITTER WC TO RETURN TO PT. RN TO SET UP TAXI TO RETRIVE WC.
--- NOTE | 2020-06-28 08:10 | NUR ---
RN CALLED [employer] TO SET UP PICKUP OF PT'S WC. [employer] PICKING UP WC AND DROPPING OFF AT [facility].
--- NOTE | 2020-06-28 08:43 | NUR ---
WC DELIVERED TO PT. URINAL PROVIDED PER REQUEST.
--- NOTE | 2020-06-28 09:07 | NUR ---
FOOD DELIVERED TO PT.
--- NOTE | 2020-06-28 09:17 | NUR ---
PER ELTON SORIA. YANG SPOKE WITH APS SW AND STATED THAT PT CAN BE DISCHARGED BACK TO THE COMM[facility]ITY IF STABLE. PT IS STABLE AND ABLE TO BE DC. RN TO DC PT.
--- NOTE | 2020-06-28 09:22 | NUR ---
PT TO BE DISCHARGED AFTER EATING. RN WENT OVER DC INSTRUCTIONS. PT VERBALIZED UNDERSTANDING. NO FURTHER QUESTIONS OR CONCERNS EXPRESSED AT THAT TIME. RN TO FIND HELP TO GET PT INTO HOME WC ONCE DONE EATING.
--- NOTE | 2020-06-28 09:46 | NUR ---
RN HELPED PT GET INTO WC. PT WHEELED SELF OUT OF ED.
== END 2020-06-28 09:48 | disposition home or self-care (01) ==
LOC: MERGE 06-28 03:29 → EDBD 06-28 03:29 → ED 06-28 03:29
DX: J18.9 Pneumonia, unspecified organism (principal); M79.604 Pain in right leg; M79.605 Pain in left leg; R06.02 Shortness of breath; F17.210 Nicotine dependence, cigarettes, uncomplicated
CPT/HCPCS: 71045; 99283

== ENCOUNTER 2020-10-22 17:36 | Emergency (ER) | payer MEDICARE ==
[~2020-10-22] VITALS: Ht 175.3 cm; Wt 63.0 kg
[~2020-10-22 17:36] MED LIST changes: +AZIT500T10 PO; +OXYC5TAB98 PO; +TIOT18CA INH
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
--- NOTE | 2020-10-22 18:20 | NUR ---
ERMD AT BEDSIDE FOR EVALUATION.
--- NOTE | 2020-10-22 18:21 | NUR ---
PATIENT WHEELED BACK TO ROOM FROM SHOWER ROOM, PLACED ON ALL MONITORS, WARM BLANKETS PROVIDED, VSS, SIDE RAILS UP X2.
[2020-10-22] MEDS ORDERED: NYSTATIN TOPICAL POWDER 15GM TP PRN (18:30)
[2020-10-22 18:47] LABS: BASOPHILS % (AUTO) 2 % (0-1); EOSINOPHILS % (AUTO) 3 % (1-7); LYMPHOCYTES % (AUTO) 30 % (22-44); MEAN CORPUSCULAR HEMOGLOBIN 28.4 pg (27.5-34.5); MEAN CORPUSCULAR HGB CONC 33.5 g/dL (33.2-36.2); MEAN PLATELET VOLUME 7.9 fL (7.4-10.4); MONOCYTES % (AUTO) 8 % (2-9); NEUTROPHILS % (AUTO) 57 % (42-75); PLATELET COUNT 301 x10^3/uL (130-400); RED BLOOD COUNT 5.22 x10^6/uL (4.38-5.82); RED CELL DISTRIBUTION WIDTH 17.8 % (9.4-14.8)
[2020-10-22 18:53] LABS: ALANINE AMINOTRANSFERASE 14 U/L (12-78); ALBUMIN 3.2 g/dL (3.4-5.0); ANION GAP 11 mmol/L (5-15); CHLORIDE 103 mmol/L (98-107); CREATININE 0.68 mg/dL (0.7-1.3)
[2020-10-22 18:55] LABS: ALKALINE PHOSPHATASE 121 U/L (45-117); BILIRUBIN,TOTAL 0.4 mg/dL (0.2-1.0); TOTAL PROTEIN 7.9 g/dL (6.4-8.2)
[2020-10-22] MEDS ORDERED: PLEASE ENTER HEIGHT AND WEIGHT MC SCH (19:00)
[2020-10-22] MEDS ORDERED: SODIUM CHLORIDE 0.9% 1,000 ML IV ONE (19:00)
[2020-10-22] MEDS ORDERED: HYDROcodone/APAP 5/325 TABLET PO ONE (20:00)
[2020-10-22] MEDS ORDERED: FLUCONAZOLE 200 MG TABLET PO ONE (20:00)
[2020-10-22] MEDS ORDERED: HYDROcodone/APAP 5/325 TABLET ONE (20:11)
--- NOTE | 2020-10-22 21:43 | NUR ---
PT RESTING IN BED, PT BEING TRANSPORTED BACK TO [facility] WHERE PT LEF HIS WHEELCHAIR. AWAITING [facility] TRANSPORT AT 1030 PM ETA
--- NOTE | 2020-10-23 01:23 | NUR ---
PT RESTING IN BED. PT ON MONITOR. PT VSS. PT DISCHARGE IS AWAITING [facility] FOR PT TRANSPORT.
[2020-10-23 02:38] VITALS: BP 135/69
--- NOTE | 2020-10-23 02:39 | NUR ---
PT TRANSFERED TO CARE OF [facility] TO BRING PT TO HIS POWER WHEEL CHAIR AT [facility]
== END 2020-10-23 02:41 | disposition home or self-care (01) ==
LOC: ED 18:17
DX: B35.6 Tinea cruris (principal); R00.0 Tachycardia, unspecified; J44.9 Chronic obstructive pulmonary disease, unspecified
CPT/HCPCS: 36415; 80053; 83735; 85025; 96360; 99285; J7030